=== PATIENT | male | born 1975 | race African-American/Black ===

== ENCOUNTER → 2021-08-30 | Day surgery (SDC) | payer OTHER ==
[2021-07-14 08:32] VITALS: BMI 24.7
[~2021-08-30] MED LIST: DEXAMETHASONE SOD PHOSPHATE 4 MG/1 ML VIAL ONE; MIDAZOLAM HCL 2 MG/2 ML SINGLE DOSE VIAL ONE; PROPOFOL 20 ML ONE
[2021-08-30 10:31] VITALS: TEMP 97.8
[2021-08-30 10:39] VITALS: BP 118/80; PULSE 76
== END | disposition home or self-care (01) ==
LOC: JASU-SURG 04:11
PROVIDERS: ATTEND Urology
PROC: 0TF4XZZ Fragmentation in Left Kidney Pelvis, External Approach (ICD-10-PCS; principal; 2021-08-30 08:30)
DX: N20.0 Calculus of kidney (principal)

== ENCOUNTER 2021-11-08 04:37 | Day surgery (SDC) | payer OTHER ==
[2021-11-03 15:50] VITALS: BMI 24.7
[2021-11-08] MEDS ORDERED: MIDAZOLAM HCL 2 MG/2 ML SINGLE DOSE VIAL ONE (14:48)
[2021-11-08] MEDS ORDERED: ONDANSETRON 4 MG/2 ML VIAL ONE (15:21)
[2021-11-08 18:13] VITALS: BP 126/80; PULSE 82; TEMP 97.8
== END 2021-11-08 16:30 | disposition home or self-care (01) ==
LOC: JASU-SURG 04:37
PROVIDERS: ATTEND Urology
PROC: 0TF4XZZ Fragmentation in Left Kidney Pelvis, External Approach (ICD-10-PCS; principal; 2021-11-08 14:00)
DX: N20.0 Calculus of kidney (principal)
CPT/HCPCS: C9803-CS; U0003; U0005